=== PATIENT | male | born 1945 | race Caucasian/White ===

== ENCOUNTER 2018-05-02 12:40 | Inpatient (IN) | payer MEDICARE ==
[2018-05-02] VITALS (13 sets, daily range): BP systolic 130–159; BP diastolic 71–98; BMI 35.5
[~2018-05-02] VITALS: Ht 175.3 cm; Wt 110.7 kg
--- NOTE | ~2018-05-02 | CN ---
PATIENT NAME:ESTEFANÍA PADILLA MEDICAL RECORD: [id number] : 49 LOCATION:D. D.2103 ADMIT DATE: 05/02/18 ACCOUNT: [id number] CONSULTING PHYSICIAN: WILIAN CARTER MD REFERRING PHYSICIAN: AVE SCOTT MD DATE OF CONSULTATION: 05/03/2018 CONSULT REQUESTING PHYSICIAN: Ave Scott MD REASON FOR CONSULTATION: COPD, shortness of breath. HISTORY OF PRESENT ILLNESS: Mr. Padilla is a 72-year-old gentleman who has a history of severe COPD - home oxygen dependent, followed at the [facility]. According to the patient, he had a fall yesterday and he hit the right side of the chest and then he was complaining of right shoulder pain and swelling of the right chest wall pain. He came into the ER, workup did not show any pulmonary rib fracture, but he was admitted for the pain control and severe dyspnea. Denies any recent upper respiratory tract infection. There is no whitish cough. No fever and chill, no night sweats. He does get swelling of the lower extremities with a history of CHF. REVIEW OF SYSTEMS: As in the history of present illness. PAST MEDICAL HISTORY: 1. COPD. 2. Emphysema. 3. Chronic hypoxic respiratory failure. 4. Obstructive sleep apnea, on BiPAP machine. 5. History of pancreatitis. 6. Gallstone. 7. Anxiety/depression. 8. PTSD. PAST SURGICAL HISTORY: 1. He had cholecystectomy. 2. Cataract surgery. 3. Shoulder surgery. 4. Foot surgery. 5. Jaw surgery. ALLERGIES: He has no known drug allergy. MEDICATIONS: On esolidar is reviewed. PERSONAL AND SOCIAL HISTORY: The patient is an ex-smoker. He is a nondrinker. FAMILY HISTORY: Significant for lung disease and cancer. PHYSICAL EXAMINATION: GENERAL: Now, the patient is lying comfortably in bed. He is not in acute distress. VITAL SIGNS: The blood pressure is 145/81, pulse is 99, respiration is 22, temperature 98.3, SPO2 95% on 6 liters nasal cannula. HEENT: Conjunctivae are pink. Sclerae are not icteric. NECK: Supple, no JVD. CONSULT REPORT [id number] ESTEFANÍA PADILLA CHEST: There are no wheezes, no rales. HEART: Rate and rhythm regular, normal sound, no murmur. ABDOMEN: Soft, bowel sounds present. No hepatosplenomegaly. The abdomen is distended. RECTAL: Deferred. EXTREMITIES: No cyanosis, no clubbing. There is 2+ pedal edema. SKIN: Warm, normal turgor. CENTRAL NERVOUS SYSTEM: The patient is awake and alert. There are no obvious cranial nerve abnormalities. The gait was not tested. LABORATORY DATA: CT scan of the chest did not show any rib fracture, but there is a stellate type of scarring of 11 mm in size in the right middle lobe. There is prominent ascending aorta, which is 3.7 cm in size. He has healed rib fractures in the past. IMPRESSION: 1. Oddlf-ka-lqgnfqu hypoxic respiratory failure. The CT scan of the chest and ultrasound of the lower extremity negative for any pulmonary thromboembolism and the patient's D-dimer is negative. 2. Chronic obstructive pulmonary disease of severe degree. 3. Right chest wall pain secondary to contusion. There is no fracture. 4. Obstructive sleep apnea, on BiPAP. 5. Congestive heart failure, possible chronic diastolic dysfunction. 6. Possible secondary pulmonary hypertension secondary to chronic obstructive pulmonary disease. 7. Morbid obesity. RECOMMENDATIONS: 1. Continue empiric Levaquin, Brovana/budesonide nebulizer, methylprednisolone IV, albuterol/ipratropium nebulizer. 2. Check alpha 1 phenotype. 3. Continue supplemental oxygen and BiPAP at night and during the day when sleepy. 4. Ibuprofen for pain control. I will hold on narcotic with a history of severe COPD and obstructive sleep apnea. Dr. Scott, thank you for involving me in the care of Mr. Padilla. TRANSINT:[id number] Voice Confirmation ID: [id number] DOCUMENT ID: [id number] WILIAN CARTER MD CC: [id number] DICTATION DATE: 05/03/18 1609 DIRECT SERVICE WORKER: 05/04/18 0013 ADM IN [facility] [address] [place] [address]
--- NOTE | ~2018-05-02 | EC ---
PATIENT:ESTEFANÍA PADILLA DATE OF SERVICE: 05/02/18 SEX: M MEDICAL RECORD: [id number] DATE OF : 49 LOCATION:D.M2 D.210 AGE OF PATIENT: 72 ADMISSION DATE: 05/02/18 REFERRING PHYSICIAN: INTERPRETING PHYSICIAN: TEJA YORK MD ECHOCARDIOGRAM REPORT ECHO CHARGES 4 ECHO COMPLETE Date: 05/05/18 CLINICAL DIAGNOSIS: CHF ECHOCARDIOGRAPHIC MEASUREMENTS (adult normal given) AC root (d.<3.7cm) 3.3 cm LV Septum d (<1.2 cm> 1.4 cm Valve Excursion 1.2 cm LV Septum (systole) 1.7 cm Left Atria (s.<4.0cm> 2.6 cm LVPW d(<1.2cm) 1.1 cm RV (d.<2.3cm) 2.3 cm LVPW (sytole) 1.6 cm LV diastole(<5.6CM) 5.5 cm MV E-F(>70mm/sec) cm LV systole 4.7 cm LVOT Diameter 2.4 cm MV exc.(>10mm) cm Est.ejection fraction (50-75%) % DOPPLER: LVIT cm/sec A 106 cm/sec E 77.0 cm/sec LA cm/sec RVSP 18.0 mmHg LVOT 109 cm/sec AOP1/2T m/s Asc. Ao 156 cm/sec RVOT cm/sec RA cm/sec PA cm/sec AV Gradient Peak 9.7 mmHg AV Mean 4.7 mmHg AV Area 3.6 cm MV Gradient Peak 3.8 mmHg MV Mean 1.4 mmHg MV Area cm COMMENTS: Silver Cleaner: Davon ECHOLSOE [employer] Analyst: 1 Dr. York TAPE# PACS Pericardial Effusion N DATE OF SERVICE: 05/05/2018 PROCEDURE: Echocardiogram. FINDINGS: 1. Left ventricular chamber size is within normal limits. Left ventricular systolic function is mildly depressed. Overall ejection fraction 40% to 45%. 2. Left atrium, right atrium, and right ventricle chamber sizes are within normal limits. 3. Valvular structures have normal structure and motion. ECHOCARDIOGRAM REPORT [id number] ESTEFANÍA PADILLA 4. Doppler interrogation reveals no significant valvular insufficiency or stenosis and pulmonary systolic pressure is normal estimated at 18 mmHg. 5. No evidence of pericardial effusion or left ventricular thrombus. TRANSINT:[id number] Voice Confirmation ID: [id number] DOCUMENT ID: [id number] TEJA YORK MD at 0924 CC: [id number] DICTATION DATE: 05/06/18 1051 HYDRO OPERATOR: 05/06/18 1119 DIS IN 05/07/18 [place] [id number] [place] [id number]
[2018-05-02 13:08] LABS: BASOPHILS 0.7 % (0-2); EOSINOPHILS 3.2 % (0-7); HEMATOCRIT 40.1 % (42.0-54.0); HEMOGLOBIN 13.3 g/dL (13.5-17.5); IMMATURE GRANULOCYTES 0.5 % (0-5); LYMPHOCYTES 17.9 % (15-50); MCH 28.9 pg (26.0-34.0); MCHC 33.2 g/dL (31.0-37.0); MEAN PLATELET VOLUME 10.8 fL (7.4-10.4); MONOCYTES 10.3 % (2-11); NEUTROPHILS 67.4 % (40-80); PLATELET COUNT 230 10x3/uL (130-400); RBC 4.61 10x6/uL (4.20-6.10); RDW 14.1 % (11.5-14.5); WBC 9.6 10x3/uL (4.8-10.8)
[2018-05-02 13:21] LABS: INR 0.99 (0.85-1.17); PROTIME 12.7 SECONDS (11.6-15.0)
[2018-05-02 13:22] LABS: ALBUMIN 4.3 g/dL (3.4-5.0); ALKALINE PHOSPHATASE 59 U/L (46-116); ALT (SGPT) 39 U/L (10-68); BILIRUBIN - TOTAL 0.58 mg/dL (0.2-1.3); CALC OSMOLALITY 277 mosm/kg (275-300); CALCIUM 9.2 mg/dL (8.5-10.1); CARBON DIOXIDE 29.3 mmol/L (21.0-32.0); CHLORIDE - SERUM 98 mmol/L (98-107); CREATININE - SERUM 1.2 mg/dL (0.6-1.3); D-DIMER-QUANTITATIVE 0.29 ug/mLFEU (0.20-0.54); GLUCOSE 128 mg/dL (74-106); POTASSIUM - SERUM 3.8 mmol/L (3.5-5.1); PROTEIN - SERUM 8.2 g/dL (6.4-8.2); SODIUM 138 mmol/L (136-145); UREA NITROGEN 13 mg/dL (7-18); eGFR NON AFRICAN AMERICAN 64 mL/min (90-120)
[2018-05-02 13:35] LABS: C-REACTIVE PROTEIN 2.4 mg/dL (0.0-0.9); CREATINE KINASE 334 UL (21-232); PRO BNP 20 pg/mL (0-125); THYROID STIMULATING HORMONE 2.01 uIU/mL (0.36-3.74); TROPONIN-I < 0.017 ng/mL (0.000-0.060)
[2018-05-03] VITALS: BP 161/86
[2018-05-03 05:53] VITALS: BP 132/99
[2018-05-03 07:59] VITALS: BP 144/94
[2018-05-03] MEDS ORDERED: NORVASC10 MG PO (09:39)
[2018-05-03] MEDS ORDERED: VENTOLIN HFA18 GM INH (09:42)
[2018-05-03] MEDS ORDERED: SYMBICORT 16010.2 GM INH (09:45)
[2018-05-03] MEDS ORDERED: ZITHROMAX250 MG PO (09:47)
[2018-05-03] MEDS ORDERED: ARTIFICIAL TEAR15 ML EACH EYE (09:47)
[2018-05-03] MEDS ORDERED: ZYBAN150 MG PO (09:48)
[2018-05-03] MEDS ORDERED: COLESTID1 GM PO (09:49)
[2018-05-03] MEDS ORDERED: CELEXA40 MG PO (09:49)
[2018-05-03] MEDS ORDERED: ZETIA10 MG PO (09:50)
[2018-05-03] MEDS ORDERED: PROSCAR5 MG PO (09:50)
[2018-05-03] MEDS ORDERED: MEDROL DOSE PACK4 MG PO (09:53)
[2018-05-03] MEDS ORDERED: LASIX40 MG PO (09:53)
[2018-05-03] MEDS ORDERED: PROTONIX40 MG PO (09:54)
[2018-05-03] MEDS ORDERED: HYTRIN10 MG PO (09:55)
[2018-05-03] MEDS ORDERED: SPIRIVA18 MCG INH (09:55)
[2018-05-03] MEDS ORDERED: VITAMIN E400 UNI2 PO (09:56)
[2018-05-03] MEDS ORDERED: INVOKANA300 MG PO (09:57)
[2018-05-03] MEDS ORDERED: NEURONTIN 400400 MG PO (09:58)
[2018-05-03] MEDS ORDERED: NOVOLIN 70/30 110 ML (10:01)
[2018-05-03] MEDS ORDERED: ZESTRIL40 MG PO (10:03)
[2018-05-03] MEDS ORDERED: ATROVENT 0.02%2.5 ML (10:03)
[2018-05-03] MEDS ORDERED: BASAGLAR K100 UNIT/1 SC (10:05)
[2018-05-03 10:13] LABS: BASOPHILS 0 % (0-2); EOSINOPHILS 0 % (0-7); HEMATOCRIT 35.9 % (42.0-54.0); HEMOGLOBIN 11.9 g/dL (13.5-17.5); IMMATURE GRANULOCYTES 0.3 % (0-5); LYMPHOCYTES 5.5 % (15-50); MCH 28.6 pg (26.0-34.0); MCHC 33.1 g/dL (31.0-37.0); MCV 86.3 fL (80.0-100.0); MEAN PLATELET VOLUME 10.4 fL (7.4-10.4); MONOCYTES 2.8 % (2-11); NEUTROPHILS 91.4 % (40-80); PLATELET COUNT 190 10x3/uL (130-400); RBC 4.16 10x6/uL (4.20-6.10); WBC 11.5 10x3/uL (4.8-10.8)
[2018-05-03 10:43] LABS: CALC OSMOLALITY 284 mosm/kg (275-300); CALCIUM 9.3 mg/dL (8.5-10.1); CARBON DIOXIDE 28.7 mmol/L (21.0-32.0); CHLORIDE - SERUM 97 mmol/L (98-107); GLUCOSE 223 mg/dL (74-106); POTASSIUM - SERUM 4.2 mmol/L (3.5-5.1); SODIUM 138 mmol/L (136-145); UREA NITROGEN 18 mg/dL (7-18); eGFR NON AFRICAN AMERICAN 78 mL/min (90-120)
[2018-05-03 10:46] VITALS: BP 152/82
[2018-05-03 10:54] VITALS: Ht 175.3 cm; Wt 110.7 kg
[2018-05-03 15:47] VITALS: BP 145/81
[2018-05-03 20:00] VITALS: BP 131/77
[2018-05-04] VITALS: BP 132/72
[2018-05-04 04:00] VITALS: BP 141/78
[2018-05-04 05:37] LABS: BASOPHILS 0 % (0-2); EOSINOPHILS 0 % (0-7); HEMATOCRIT 34.3 % (42.0-54.0); HEMOGLOBIN 11.1 g/dL (13.5-17.5); IMMATURE GRANULOCYTES 0.3 % (0-5); LYMPHOCYTES 4.6 % (15-50); MCH 28.5 pg (26.0-34.0); MCHC 32.4 g/dL (31.0-37.0); MCV 87.9 fL (80.0-100.0); MEAN PLATELET VOLUME 10.8 fL (7.4-10.4); MONOCYTES 6.8 % (2-11); NEUTROPHILS 88.3 % (40-80); PLATELET COUNT 185 10x3/uL (130-400); RDW 14.5 % (11.5-14.5)
[2018-05-04 05:46] LABS: WBC 15.2 10x3/uL (4.8-10.8)
[2018-05-04 06:38] LABS: ALBUMIN 3.4 g/dL (3.4-5.0); ANION GAP 17.5 mmol/L (8-16); BILIRUBIN - TOTAL 0.29 mg/dL (0.2-1.3); CALCIUM 8.7 mg/dL (8.5-10.1); CARBON DIOXIDE 25.5 mmol/L (21.0-32.0); CREATININE - SERUM 1.1 mg/dL (0.6-1.3); MAGNESIUM - SERUM 1.9 mg/dL (1.8-2.4); PROTEIN - SERUM 6.6 g/dL (6.4-8.2)
[2018-05-04 08:04] VITALS: BP 155/88
[2018-05-04 11:01] VITALS: BP 136/90
[2018-05-04 18:26] VITALS: BP 122/88
[2018-05-04 20:00] VITALS: BP 167/99
[2018-05-05 00:11] VITALS: BP 134/76
[2018-05-05 04:00] VITALS: BP 142/87
[2018-05-05 04:05] LABS: BASOPHILS 0 % (0-2); EOSINOPHILS 0 % (0-7); HEMATOCRIT 34.6 % (42.0-54.0); HEMOGLOBIN 11.3 g/dL (13.5-17.5); IMMATURE GRANULOCYTES 0.5 % (0-5); LYMPHOCYTES 6.8 % (15-50); MCH 28.5 pg (26.0-34.0); MCHC 32.7 g/dL (31.0-37.0); MCV 87.4 fL (80.0-100.0); MEAN PLATELET VOLUME 10.6 fL (7.4-10.4); MONOCYTES 7.1 % (2-11); NEUTROPHILS 85.6 % (40-80); PLATELET COUNT 188 10x3/uL (130-400); RBC 3.96 10x6/uL (4.20-6.10); RDW 14.3 % (11.5-14.5); WBC 13.9 10x3/uL (4.8-10.8)
[2018-05-05 04:23] LABS: ALBUMIN 3.4 g/dL (3.4-5.0); ALKALINE PHOSPHATASE 38 U/L (46-116); ALT (SGPT) 25 U/L (10-68); BILIRUBIN - TOTAL 0.33 mg/dL (0.2-1.3); CALC OSMOLALITY 288 mosm/kg (275-300); CALCIUM 8.5 mg/dL (8.5-10.1); CHLORIDE - SERUM 103 mmol/L (98-107); CREATININE - SERUM 0.9 mg/dL (0.6-1.3); GLUCOSE 237 mg/dL (74-106); MAGNESIUM - SERUM 2.1 mg/dL (1.8-2.4); PHOSPHOROUS 3.4 mg/dL (2.5-4.9); POTASSIUM - SERUM 3.7 mmol/L (3.5-5.1); PROTEIN - SERUM 6.6 g/dL (6.4-8.2); SODIUM 139 mmol/L (136-145); UREA NITROGEN 20 mg/dL (7-18); eGFR NON AFRICAN AMERICAN 89 mL/min (90-120)
[2018-05-05 04:27] LABS: CARBON DIOXIDE 32.4 mmol/L (21.0-32.0)
[2018-05-05 09:08] VITALS: BP 148/98
[2018-05-05 12:33] VITALS: BP 135/81
[2018-05-05 15:12] VITALS: BP 145/85
[2018-05-05 20:46] VITALS: BP 140/85
[2018-05-06] VITALS: BP 114/82
[2018-05-06 05:24] LABS: BASOPHILS 0.1 % (0-2); EOSINOPHILS 0 % (0-7); HEMATOCRIT 36.3 % (42.0-54.0); HEMOGLOBIN 11.9 g/dL (13.5-17.5); IMMATURE GRANULOCYTES 0.9 % (0-5); LYMPHOCYTES 7.2 % (15-50); MCH 28.5 pg (26.0-34.0); MCHC 32.8 g/dL (31.0-37.0); MCV 86.8 fL (80.0-100.0); MEAN PLATELET VOLUME 10.9 fL (7.4-10.4); MONOCYTES 7.6 % (2-11); NEUTROPHILS 84.2 % (40-80); PLATELET COUNT 196 10x3/uL (130-400); RBC 4.18 10x6/uL (4.20-6.10); RDW 14.1 % (11.5-14.5); WBC 12.6 10x3/uL (4.8-10.8)
[2018-05-06 05:54] LABS: CALC OSMOLALITY 290 mosm/kg (275-300); CALCIUM 8.9 mg/dL (8.5-10.1); CARBON DIOXIDE 29.7 mmol/L (21.0-32.0); CHLORIDE - SERUM 101 mmol/L (98-107); CREATININE - SERUM 0.9 mg/dL (0.6-1.3); GLUCOSE 252 mg/dL (74-106); POTASSIUM - SERUM 3.6 mmol/L (3.5-5.1); SODIUM 139 mmol/L (136-145); UREA NITROGEN 24 mg/dL (7-18); eGFR NON AFRICAN AMERICAN 89 mL/min (90-120)
[2018-05-06 05:55] VITALS: BP 140/91
[2018-05-06 07:52] VITALS: BP 143/91
[2018-05-06 10:49] VITALS: BP 161/97
[2018-05-06 14:44] VITALS: BP 155/101
[2018-05-06 20:24] VITALS: BP 163/91
[2018-05-07] VITALS: BP 160/106
[2018-05-07 06:02] LABS: BASOPHILS 0.1 % (0-2); EOSINOPHILS 0 % (0-7); HEMATOCRIT 38.2 % (42.0-54.0); HEMOGLOBIN 12.7 g/dL (13.5-17.5); LYMPHOCYTES 9.3 % (15-50); MCH 28.5 pg (26.0-34.0); MCHC 33.2 g/dL (31.0-37.0); MCV 85.7 fL (80.0-100.0); MEAN PLATELET VOLUME 10.3 fL (7.4-10.4); MONOCYTES 7.4 % (2-11); NEUTROPHILS 81.2 % (40-80); PLATELET COUNT 191 10x3/uL (130-400); RBC 4.46 10x6/uL (4.20-6.10); RDW 13.9 % (11.5-14.5); WBC 12.5 10x3/uL (4.8-10.8)
[2018-05-07 06:19] VITALS: BP 159/105
[2018-05-07 06:35] LABS: CALC OSMOLALITY 290 mosm/kg (275-300); CARBON DIOXIDE 28.4 mmol/L (21.0-32.0); CHLORIDE - SERUM 101 mmol/L (98-107); GLUCOSE 259 mg/dL (74-106); POTASSIUM - SERUM 3.3 mmol/L (3.5-5.1); SODIUM 140 mmol/L (136-145); UREA NITROGEN 22 mg/dL (7-18); eGFR NON AFRICAN AMERICAN 78 mL/min (90-120)
[2018-05-07 09:30] VITALS: BP 159/100
[2018-05-07] MEDS ORDERED: NORVASC10 MG PO (14:22)
== END 2018-05-07 16:21 | disposition home or self-care (01) | DRG 189 ==
LOC: D.ER 12:40 → D.EDHOLD 19:03 → D.M2 19:03
PROVIDERS: Emergency Medicine
PROC: 5A09357 Assistance with Respiratory Ventilation, Less than 24 Consecutive Hours, Continuous Positive Airway Pressure (ICD-10-PCS; principal; 2018-05-02)
DX: J96.21 Acute and chronic respiratory failure with hypoxia (principal); J44.1 Chronic obstructive pulmonary disease with (acute) exacerbation; N17.9 Acute kidney failure, unspecified; I50.32 Chronic diastolic (congestive) heart failure; J98.11 Atelectasis; J96.22 Acute and chronic respiratory failure with hypercapnia; S20.211A Contusion of right front wall of thorax, initial encounter; W18.2XXA Fall in (into) shower or empty bathtub, initial encounter; G47.33 Obstructive sleep apnea (adult) (pediatric); E11.65 Type 2 diabetes mellitus with hyperglycemia; E11.40 Type 2 diabetes mellitus with diabetic neuropathy, unspecified; E03.9 Hypothyroidism, unspecified; I11.0 Hypertensive heart disease with heart failure; E66.01 Morbid (severe) obesity due to excess calories; I27.23 Pulmonary hypertension due to lung diseases and hypoxia; Z68.35 Body mass index [BMI] 35.0-35.9, adult; Z87.891 Personal history of nicotine dependence